=== PATIENT | female | born 1975 | race Two or more races ===

== ENCOUNTER 2019-11-04 14:05 | Emergency (ER) | payer MEDICAID ==
[2019-11-04] VITALS (8 sets, daily range): BP systolic 110–141; BP diastolic 70–89
[~2019-11-04] VITALS: Ht 160 cm; Wt 72.5 kg
[2019-11-04 14:43] LABS: BASOPHILS # (AUTO) 0.1 X10'3 (0-0.2); BASOPHILS % (AUTO) 1.1 % (0-1); EOSINOPHILS # (AUTO) 0.1 X10'3 (0-0.9); EOSINOPHILS % (AUTO) 1.3 % (0-6); LYMPHOCYTES # (AUTO) 1.6 X10'3 (1.1-4.8); LYMPHOCYTES % (AUTO) 20.5 % (21-51); MEAN CORPUSCULAR HEMOGLOBIN 24.9 PG (27.0-31.0); MEAN CORPUSCULAR HGB CONC 32.5 g/dL (33.0-36.5); MEAN CORPUSCULAR VOLUME 76.5 FL (78-98); MEAN PLATELET VOLUME 9.4 FL (7.4-10.4); MONOCYTES # (AUTO) 0.5 X10'3 (0-0.9); MONOCYTES % (AUTO) 6.9 % (2-12); NEUTROPHILS # (AUTO) 5.6 X10'3 (1.8-7.7); NEUTROPHILS % (AUTO) 70.2 % (42-75); PLATELET COUNT 295 X10'3 (140-440); RED BLOOD COUNT 4.44 X10'6 (4.20-5.60); RED CELL DISTRIBUTION WIDTH 16.2 % (11.5-14.5)
[2019-11-04 14:54] LABS: ALANINE AMINOTRANSFERASE 24 U/L (12-78); ALBUMIN 3.6 G/DL (3.4-5.0); ALBUMIN/GLOBULIN RATIO 0.9 (1.1-1.5); ALKALINE PHOSPHATASE 96 IU/L (46-116); AMYLASE 17 U/L (25-115); ANION GAP 10 (8-16); ASPARTATE AMINO TRANSFERASE 17 U/L (10-37); BILIRUBIN,TOTAL 0.3 MG/DL (0.1-1.0); BLOOD UREA NITROGEN 5 MG/DL (7-18); BUN/CREATININE RATIO 7.6 (6.6-38.0); CALCIUM 8.4 MG/DL (8.5-10.1); CHLORIDE 107 MMOL/L (99-107); CREATININE 0.66 MG/DL (0.40-0.90); GLUCOSE 88 MG/DL (70-104); LIPASE 70 U/L (73-393); POTASSIUM 3.4 MMOL/L (3.5-5.1); SODIUM 141 MMOL/L (135-145); TOTAL PROTEIN 7.5 G/DL (6.4-8.2); eGFR > 90 ML/MIN
[2019-11-04 15:18] LABS: CLARITY,URINE CLEAR (Clear); COLOR,URINE YELLOW (Yellow); GLUCOSE, URINE NEGATIVE (Neg); KETONES,URINE NEGATIVE (Neg); LEUKOCYTE ESTERASE ,URINE NEGATIVE (Neg); NITRITES, URINE NEGATIVE (Neg); OCCULT BLOOD,URINE TRACE-LYSED (Neg); PH,URINE 7.5 (4.8-8.0); PROTEIN,URINE NEGATIVE (Neg); UROBILINOGEN,URINE 0.2 E.U/dL (0.2-1.0)
[2019-11-04 15:19] LABS: UA COLLECTION TYPE CLN CATCH MIDSTREAM; URINE HCG NEGATIVE (NEG)
[2019-11-04 15:42] LABS: SQUAMOUS EPITHELIAL CELL,UR FEW /LPF (FEW)
[2019-11-04 15:43] LABS: WBC,URINE 0-4 /HPF (0-4)
[2019-11-04 15:44] LABS: BACTERIA,URINE FEW /HPF (Neg)
[2019-11-04 15:45] LABS: TRANSITIONAL EPI CELLS,URINE FEW /HPF
[2019-11-04 15:47] LABS: RBC,URINE 0-2 /HPF (0-2)
[2019-11-04] MEDS ORDERED: normal saline 1000ml 1,000 ML IV SCH (16:04)
[2019-11-04] MEDS ORDERED: ceFOXitin 2 GM ADDvantage bag 100 ML IV ONE (16:05)
[2019-11-04] MEDS ORDERED: ceFAZolin 1000mg inj ONE (16:07)
[2019-11-04] MEDS ORDERED: BUPIVAcaine/PF 2.5 mg/ml (0.25%) 30ml vial ONE (16:07)
[2019-11-04] MEDS ORDERED: ringers solution, lacted 1,000 ML IV SCH (16:07)
[2019-11-04] MEDS ORDERED: proCHLORperazine 10 MG/2 ml inj IV PRN (16:10)
[2019-11-04] MEDS ORDERED: morphine 4 MG/ML inj SYRINge IV PRN ×2 (16:10)
[2019-11-04] MEDS ORDERED: meperidine/PF 25mg/ml syringe IV PRN ×2 (16:10)
[2019-11-04] MEDS ORDERED: ondansetron/PF 4mg/2ml inj IV PRN (16:10)
[2019-11-04] MEDS ORDERED: ceFOXitin sod/dextrose 2g/50ml 50 ML IV ONE (16:17)
[2019-11-04] MEDS ORDERED: HYDR-3964 PO (16:18)
[2019-11-04] MEDS ORDERED: HYDR-3972 PO ×2 (16:19→16:22)
--- NOTE | 2019-11-04 16:19 | NUR ---
REPORT CALLED TO POST OP RN. PT LEFT WITH SURGICAL TEAM AFTER CONSULT WITH RIMMA.
[2019-11-04] MEDS ORDERED: ONDA8TAB13 PO (16:24)
[2019-11-04] MEDS ORDERED: ondansetron/PF 4mg/2ml inj ONE (16:26)
[2019-11-04] MEDS ORDERED: sevoflurane 250ml liquid IH ONE (16:26)
[2019-11-04] MEDS ORDERED: glycopyrrolate 0.2mg/ml inj ONE (16:26)
[2019-11-04] MEDS ORDERED: neostigmine methylsulfate 1 MG/ML 10ml vial ONE (16:26)
[2019-11-04] MEDS ORDERED: dexamethasone sod phosphate 10mg/ml inj ONE (16:26)
[2019-11-04] MEDS ORDERED: midazolam 2 mg/2 ml injection ONE (16:32)
[2019-11-04] MEDS ORDERED: ceFOXitin 2 GM ADDVANTGE BAG 50 ML IV ONE (16:32)
[2019-11-04] MEDS ORDERED: fentaNYL/PF 50MCG/1 ML 2ML syringe ONE (16:32)
[2019-11-04] MEDS ORDERED: propofol inj 20 ML IV ONE (16:33)
[2019-11-04] MEDS ORDERED: rocuronium 10mg/ml inj IV ONE (16:33)
--- NOTE | 2019-11-04 17:35 | NUR ---
Received from OR via BED , accompanied by Anesthesiologist DR AN and report given by Anesthesiolgist. PATIENT WAKING UP, DENIES PAIN, V/S WNL, NEUROVASCULAR CHECKS INTACT, 20G PIV RUE, SCD ON, 3 BANDAIDS TO LAP SIGHTS OF ABDOMEN CDI.
[2019-11-04] MEDS ORDERED: HYDROcodone/acetaminophen 10/325mg tab PO ONE (17:50)
[2019-11-04] MEDS ORDERED: ketorolac trometh. 30mg/ml inj. IV ONE (17:55)
[2019-11-04] MEDS: meperidine/PF 25mg/ml syringe IV PRN ×2 (17:55→18:19)
[2019-11-04] MEDS ORDERED: acetaminophen 1,000mg/100ml IV 100 ML IV ONE (17:55)
--- NOTE | 2019-11-04 19:05 | NUR ---
PATIENT ORIENTED X4, STATES PAIN CONTROLLED NOW, V/S WNL, NEUROVASCULAR CHECKS INTACT, 20G PIV RUE D/C, SCD OFF, 3 BANDAIDS TO LAP SIGHTS OF ABDOMEN CDI. I HAVE REVIEWED D/C INSTRUCTIONS WITH PATIENT AND FAMILY AND THEY HAVE VERBALIZED UNDERSTANDING. PATIENT D/C HOME WITH ALL BELONGINGS AND FAMILY GAVE TRANSPORT HOME.
== END 2019-11-04 19:05 | disposition home or self-care (01) ==
LOC: ER 14:06 → CANBEDREQ 21:22
DX: K81.0 Acute cholecystitis (principal); Z79.899 Other long term (current) drug therapy
CPT/HCPCS: 36415; 47562; 80053; 81001; 81025; 82150; 83690; 85025; 96374; 96375; 99285; J0690; J0694; J1100; J1885; J2175; J2250; J2405; J2704; J2710; J3010; J3490; J7120; A4215; A4618; A7000; J0131